=== PATIENT | female | born 1970 | race Caucasian/White ===

== ENCOUNTER 2016-08-15 11:31 | Day surgery (SDC) | payer OTHER ==
[~2016-08-15] VITALS: Ht 168.9 cm; Wt 90.7 kg
[~2016-08-15 11:31] MED LIST: BACI1CAP6 PO; MULT-1018 PO; OMEP20TA86 PO; SUCR1TAB PO; Sodium Chloride LOK Flush 10 mL Syringe IV PRN; fentaNYL-PF 50 mCg/mL 2 mL Inj IVPUSH PRN
[2016-08-15 13:24] VITALS: BP 124/87; PULSE 79; RESP 16; O2SAT 100
[2016-08-15] MEDS: 0.9% Sodium Chloride 1,000 ML IV PRN ×2 (13:52→14:13)
--- NOTE | 2016-08-15 14:12 | PCM.ENDEGD ---
EGD Date of Service: Aug 15, 2016 Physician Juan Mansfield MD Pre Procedure Diagnosis: Dysphagia Post Procedure Dx & Findings: Normal upper GI Procedure Esophagogastroduodenoscopy PROCEDURE IN DETAIL: The patient was placed in left lateral decubitus position. Bite block was placed. Scope lubricated, placed in posterior pharynx, passed through the cricopharyngeus and esophagus, slowly advanced the entire length of the gastric pouch, pylorus was identified, scope passed through the pylorus and descending portion of duodenum, withdrawn in the antrum, retroflexed upon itself for view of fundus and cardia. Scope was then withdrawn through the oropharynx. Esophagus normal was normal. Normal healthy shiny white mucosa noted in the squamous component. Z line intact at 40 cm. Stomach was normal. Cardia fundus body antrum pylorus are visualized. Normal mucosa noted without any ulcer or mass erosion. Retroflexion was done. Stomach was easily inflatable and deflated using air. Stomach further advanced to the distal duodenum. Duodenum showed normal villous structures with normal appearing folds. Impression Normal EGD Presedation Assessment Risks and Benefits Informed consent was obtained from the patient after all risks and benefits including but not limited to drug reaction, infection, pain, bleeding, perforation, as well as alternatives were discussed. Patient monitoring Continuous pulse oximetry, cardiac monitoring, blood pressure monitoring, IV access, and oxygen at 2L per nasal cannula. Periprocedural Fentanyl: Fentanyl 125mcg Incrementally Midazolam: Midazolam 6mg Incrementally Diphenhydramine: Diphenhydramine 50 mg IV Complications There were no periprocedural complications identified. Post Procedure Plan Post Procedure Recommendations 1. Restrict activities today. 2. Resume normal activities in the morning. 3. Resume medications. 4. GERD behavioral modification: - Avoid fatty, acidic, spicy, large meals - Do not lie down after meals - Do not eat or drink anything for at least 2 1/2 hours before going to bed at night - Discontinue tobacco and alcohol - Decrease or avoid caffeine - Avoid chocolate and mints - Decrease weight - Avoid aspirin and non steroidal anti-inflammatory agents (NSAID) such as Aleve, Advil, Mobic, Naproxen, Ibuprofen, etc 5. Add proton pump inhibitor. Take 30 minutes before 1st meal of the day. 6. Patient informed of normal post procedure side effects as bloating, drowsiness, blood streaking in the stool 7. If gastric biopsy reveal H.pylori, continue with appropriate treatment 8. If small bowel biopsy reveals celiac, continue with appropriate treatment 9. Please don't hesitate to call me with any questions Juan Mansfiled MD Aug 15, 2016 14:12
[2016-08-15 14:34] VITALS: BP 110/69; PULSE 66; RESP 14; O2SAT 100
--- NOTE | 2016-08-15 14:34 | PCM.ENDCOL ---
Colonoscopy Date of Service: Aug 15, 2016 Physician Juan Mansfield MD Pre Procedure Diagnosis: Fecal incontinence Post Procedure Dx & Findings: Polyp hemorrhoids diverticuli Procedure Colonoscopy Prep adequate Withdrawal 8 minutes PROCEDURE IN DETAIL: After unremarkable rectal examination was videocolonoscope was inserted patient' s anal canal was advanced to cecum. Landmarks were identified including the ileocecal valve and appendiceal orifice. Scope was withdrawn systematically. In the sigmoid colon, there was a 3 mm polyp which was removed completely using cold snare. In the sigmoid colon there were a few less than 1 mm diverticuli. In the rectum retroflexion was done which showed hemorrhoids and anal canal was inspected carefully on the way out and hemorrhoids noted. The mucosa of the cecum, ascending, transverse, descending, sigmoid, rectal mucosa lined with whitish, pink, smooth, glistening, normal-appearing mucosa, normal fine branching, underlying vascularity, normal haustra. The patient tolerated procedure and was transported to observation area. Impression Polyp 1 status post complete removal Hemorrhoids Diverticuli Recommendation Repeat colonoscopy 5 years Diverticular diet Follow up at the GI clinic with PA Presedation Assessment Risks and Benefits Informed consent was obtained from the patient after all risks and benefits including but not limited to drug reaction, infection, pain, bleeding, perforation, as well as alternatives were discussed. Patient monitoring Continuous pulse oximetry, cardiac monitoring, blood pressure monitoring, IV access, and oxygen at 2L per nasal cannula. Periprocedural Fentanyl: Fentanyl 25mcg Midazolam: Midazolam 1mg Incrementally Complications There were no periprocedural complications identified. Post Procedure Plan Post Procedure Recommendations 1. Restrict activities today. 2. Resume normal activities in the morning. 3. Resume medications. 4. Patient informed of normal post procedure side effects as bloating, drowsiness, blood streaking in the stool. 5. average risk CRCS. If colon polyps come back as: -Hyperplastic- can repeat colonoscopy in 10 years -Tubular adenoma- repeat colonoscopy in 5 years -Tubulovillous/villous adenoma- repeat colonoscopy in 3 years -If any dysplasia- return to clinic as soon as possible 6. Please don't hesitate to call me with any questions. Juan Mansfield MD Aug 15, 2016 14:34
[2016-08-15 14:44] VITALS: BP 111/69; PULSE 66; RESP 14; O2SAT 100
[2016-08-15 14:55] VITALS: BP 109/69; PULSE 68; RESP 16; O2SAT 99
--- NOTE | 2016-08-17 13:32 | PATH ---
SURGICAL PATHOLOGY Attending Physician:Juan Mansfield M.D. CASE STATUS: Signed Out PATIENT NAME: SANJAY CASEY PID: [id number] : 1970 DATE COLLECTED:08/15/2016 00:00 SPECIMEN: Colon, Biopsy CLINICAL HISTORY: 1).SIGMOID COLON POLYP X1 FINAL DIAGNOSIS: 1.SIGMOID COLON, POLYP, BIOPSY: HYPERPLASTIC POLYP. ICD10 CODE K63.5 GROSS DESCRIPTION: The specimen is received in one formalin filled container labeled with the patient's name, sublabeled "sigmoid colon polyp" and consists of a 0.3 x 0.3 x 0.2 CM portion of tissue which is entirely submitted in one cassette. 08/16/2016 DAC MICRO DESCRIPTION: See diagnosis. ICD-9 CODES: CPT CODES: 1: 55055 Electronically Signed Out Sarah Vigil MD [facility] [address] [facility], [place] [address] Technical component performed at [facility], [address] [place] [address] Ave[address], [address]
== END 2016-08-15 23:59 | disposition home or self-care (01) ==
LOC: END 11:31
PROVIDERS: ATTEND Internal Medicine
DX: K63.5 Polyp of colon (principal); K64.9 Unspecified hemorrhoids; K57.30 Diverticulosis of large intestine without perforation or abscess without bleeding; R15.9 Full incontinence of feces; R13.10 Dysphagia, unspecified; K21.9 Gastro-esophageal reflux disease without esophagitis; Z87.442 Personal history of urinary calculi
CPT/HCPCS: 43235; 45385; 99153; G0500; J1200; J2250; J3010; J7030